=== PATIENT | female | born 1995 | race Caucasian/White ===

== ENCOUNTER 2023-11-26 07:28 | Emergency (ER) | payer BC, SELFPAY ==
[2023-11-26 07:32] VITALS: BP 126/83; PULSE 113; TEMP 37.1; O2SAT 98; BMI 33.7
--- NOTE | 2023-11-26 07:42 | ED.GENADUL1 ---
HPI HPI - General Adult General Chief complaint: Upper Respiratory Infection Stated complaint: SORE THROAT/ GENERAL WEAKNESS Time Seen by Provider: 11/26/23 07:34 Source: patient Mode of arrival: walk-in Limitations: no limitations History of Present Illness HPI narrative: The patient presented to us with 2 days history of sore throat, she mentioned that she also have a generalized body ache no cough , but she have a change in her voice. And the sore throat at the main concern No cough no difficulty breathing and she has been exposed to her daughter who had similar illness Related Data Home Medications ?Medication ?Instructions ?Recorded ?Confirmed citalopram 10 mg tablet 10 mg PO DAILY 11/26/23 11/26/23 fludrocortisone 0.1 mg tablet 0.1 mg PO DAILY 11/26/23 11/26/23 montelukast 10 mg tablet 10 mg PO DAILY 11/26/23 11/26/23 Previous Rx's ?Medication ?Instructions ?Recorded amoxicillin 875 mg-potassium 1 tab PO Q12H #14 tabs 11/26/23 clavulanate 125 mg tablet ibuprofen 600 mg tablet 600 mg PO Q8H PRN pain #20 tabs 11/26/23 Allergies Allergy/AdvReac Type Severity Reaction Status Date / Time No Known Drug Allergies Allergy Verified 11/26/23 07:32 Opioid HPI Opioid Management Most Recent Opioid Data: No Data to Display Review of Systems ROS Status of ROS 10 or more systems reviewed and unremarkable except as noted in history and below Exam Narrative Exam Narrative: Nurses notes and vital signs reviewed and patient is not hypoxic. General: Well-appearing and in no apparent distress. Skin: Warm, dry, no pallor noted. No rash. Head: Normocephalic, atraumatic. Neck: Supple, anterior cervical lymphadenopathy noted on the anterior aspect of both sides Eye: Pupils are equal, round and EOMI. No scleral icterus. Ears, Nose, Mouth, and Throat: Posterior oropharynx shows significant erythema with white exudate on the left side and the patient have mild hypertrophy of the tonsils. No probe compromise of the airway and there is anterior cervical lymphadenopathy in both sides Respiratory: No accessory muscle use or respiratory distress. Lungs are clear to auscultation, no wheezing, rales or rhonchi Chest Wall: no tenderness Back: No midline thoracic or lumbar vertebral tenderness. No CVA tenderness Musculoskeletal: normal ROM, no calf or popliteal tenderness, no lower extremity edema/swelling GI: Abdomen is soft, non-distended. Normal bowel sounds. No masses appreciated. No tenderness to palpation. No rebound, guarding, or rigidity noted. Neurological: A&O x4. No cranial nerve dysfunction observed. No truncal ataxia. Moves all extremities. Sensation intact. Psychiatric: Cooperative and interactive. Normal mood and affect. Constitutional Vital Signs, click to edit/add: Last Vital Signs Temp 98.8 F 11/26/23 07:32 Pulse 113 H 11/26/23 07:32 Resp 20 11/26/23 07:32 BP 126/83 11/26/23 07:32 Pulse Ox 98 11/26/23 07:32 Course Vital Signs Vital signs: Vital Signs Temperature 98.8 F 11/26/23 07:32 Pulse Rate 113 H 11/26/23 07:32 Respiratory Rate 20 11/26/23 07:32 Blood Pressure 126/83 11/26/23 07:32 Pulse Oximetry 98 11/26/23 07:32 Temperature 98.8 F 11/26/23 07:32 Pulse Rate 113 H 11/26/23 07:32 Respiratory Rate 20 11/26/23 07:32 Blood Pressure 126/83 11/26/23 07:32 Pulse Oximetry 98 11/26/23 07:32 Medical Decision Making [facility] Narrative Medical decision making narrative: The patient have a typical presentation of strep tonsillitis and her test came positive She was treated in the ER with with Toradol and Augmentin The patient was discharged home with Augmentin as well as continue supportive care The patient was instructed since her daughter had similar symptoms to be tested by her boiler installer in case needed but in case she continued to have any symptoms she also need to be treated for strep The patient is to follow up with primary care physician in next 2-3 days or to return to the emergency department should any of the signs or symptoms worsen or new symptoms develop. The patient agrees with the following Diagnosis and Treatment plan and the patient will be discharged home. Lab Data Labs: Lab Results 11/26/23 Range/Units 07:46 Streptococcus Screen Positive A Discharge Plan Discharge Stand Alone Forms: Portal Instructions Chief Complaint: Upper Respiratory Infection Clinical Impression: Strep tonsillitis Patient Disposition: Home, Self-Care Time of Disposition Decision: 07:41 Condition: Good Prescriptions / Home Meds: New amoxicillin-pot clavulanate 875-125 mg tablet 1 tab PO Q12H Qty: 14 0RF ibuprofen 600 mg tablet 600 mg PO Q8H PRN (Reason: pain) Qty: 20 0RF No Action fludrocortisone 0.1 mg tablet 0.1 mg PO DAILY citalopram 10 mg tablet 10 mg PO DAILY montelukast 10 mg tablet 10 mg PO DAILY Print Language: Algerian Instructions: Strep Throat (DC) Referrals: Physician,Non-Staff, MD [Primary Care Provider] - 1 week
[2023-11-26 08:04] LABS: Internal Control Within Normal Limits; Strep A Antigen Screen Positive
[2023-11-26 08:20] VITALS: BP 124/84; PULSE 98; O2SAT 98
[2023-11-26] MEDS: KETOROLAC TROMETHAMINE 30 MG/ML VIAL IM (08:29)
[2023-11-26] MEDS: AMOXICILLIN/POTASSIUM CLAV 1 TAB TABLET PO (08:29)
[2023-11-26 08:32] VITALS: BP 124/84; PULSE 98; O2SAT 98
== END 2023-11-26 08:34 | disposition home or self-care (01) ==
PROVIDERS: Emergency Provider Emergency Medicine; Family Provider Internal Medicine
DX: J03.00 Acute streptococcal tonsillitis, unspecified (principal)
CPT/HCPCS: 87880; 96372; 99284; J1885

== ENCOUNTER 2024-05-26 17:40 | Emergency (ER) | payer BC, SELFPAY ==
--- NOTE | 2024-05-26 17:41 | US_ITS ---
The [address] [address] Patient Name: MIAH RICKS MRN: [id number] date: 1995 Sex: F Assigned Patient Location: ER Current Patient Location: ER Accession/Order Number: [id number] Exam Date: 05/26/2024 18:39 Report Date: 05/26/2024 20:27 At the request of: RACHELE RICHARDSON Procedure: US OB transvaginal US OB transvaginal HISTORY: vag bleeding COMPARISONS: None TECHNIQUE: Transvaginal imaging the pelvis was performed. FINDINGS: There is a gestational sac and a yolk sac. However, there is no pole or heartbeat which could be due to early gestational age. RIGHT OVARY: There is normal vascular flow. There is a dominant follicle present in the right ovary measuring 2.3 x 2.0 x 2.1 cm. The right ovary measures 5.3 x 2.8 x 5.0 cm. LEFT OVARY: Not visualized. OTHER:There is no significant free fluid in the pelvis. US/US OB transvaginal IMPRESSION: There is a gestational sac and a yolk sac. However, there is no pole or heartbeat which is likely due to early gestational age. Continued correlation with serial beta hCG levels is recommended. Repeat sonography can be performed in 2 weeks. Electronically authenticated by: NOMI SENA Date: 05/26/2024 20:27
--- NOTE | 2024-05-26 17:42 | ED.GENADUL1 ---
HPI HPI - General Adult General Chief complaint: Vaginal Bleeding Stated complaint: VAGINAL BLEEDING, 6 WEEKS Time Seen by Provider: 05/26/24 17:41 Source: patient and family History of Present Illness HPI narrative: Patient is a 29-year-old female who presents to this emergency department for reevaluation of vaginal bleeding early in . Patient states she has been spotting for approximately 2 weeks with regard to her , she states she is 5-1/2 weeks . She is a A1. She states that her METHODS SPECIALIST has been ordering quantitative hCG levels to track her and they have been trending up as expected, however yesterday she had heavier bleeding and went to the [place] emergency department this morning. She states she had an ultrasound that was unremarkable. She presents to this emergency department for second opinion, she states when she got home from the ER she passed a large blood clot and continue to have some bleeding. She has not saturated a pad. She has had no fevers, significant abdominal pain or vomiting. Related Data Home Medications ?Medication ?Instructions ?Recorded ?Confirmed citalopram 10 mg tablet 10 mg PO DAILY 11/26/23 11/26/23 fludrocortisone 0.1 mg tablet 0.1 mg PO DAILY 11/26/23 11/26/23 montelukast 10 mg tablet 10 mg PO DAILY 11/26/23 11/26/23 Previous Rx's ?Medication ?Instructions ?Recorded amoxicillin 875 mg-potassium 1 tab PO Q12H #14 tabs 11/26/23 clavulanate 125 mg tablet fluconazole 150 mg tablet 150 mg PO ONCE #1 tab 11/26/23 ibuprofen 600 mg tablet 600 mg PO Q8H PRN pain #20 tabs 11/26/23 Allergies Allergy/AdvReac Type Severity Reaction Status Date / Time No Known Drug Allergies Allergy Verified 11/26/23 07:32 Opioid HPI Opioid Management Most Recent Opioid Data: Last Pain Scale 4 05/26/24 20:13 05/26/24 Review of Systems ROS Constitutional Denies: fever or chills Ears, nose, mouth, and throat Denies: throat pain or nasal congestion Gastrointestinal Denies: abdominal pain, nausea, vomiting or diarrhea Neurological Reports: headache; Denies: dizziness Hematologic/Lymphatic Denies: easy bruising or easy bleeding PFSH PFSH Social History Little interest or pleasure in doing things: not at all Feeling down, depressed, or hopeless: not at all Exam Narrative Exam Narrative: Gen.: Awake, alert, in no distress Head: Normocephalic, atraumatic ENT: Moist mucous membranes Respiratory: No respiratory distress Gastrointestinal: Abdomen is soft, nondistended and nontender to palpation Extremities: Moves extremities equally Psych: Normal mood and affect Neuro: No focal neuro deficit Skin: Warm, dry, intact Constitutional Vital Signs, click to edit/add: Last Vital Signs Temp 98.4 F 05/26/24 20:14 Pulse 84 05/26/24 20:14 Resp 18 05/26/24 20:14 BP 127/80 05/26/24 20:14 Pulse Ox 100 05/26/24 20:14 O2 Del Method Room Air 05/26/24 17:51 Course Vital Signs Vital signs: Vital Signs Temperature 98.2 F 05/26/24 17:51 Pulse Rate 87 05/26/24 17:51 Respiratory Rate 18 05/26/24 17:51 Blood Pressure 133/89 05/26/24 17:51 Pulse Oximetry 100 05/26/24 17:51 Oxygen Delivery Method Room Air 05/26/24 17:51 Temperature 98.4 F 05/26/24 20:14 Pulse Rate 84 05/26/24 20:14 Respiratory Rate 18 05/26/24 20:14 Blood Pressure 127/80 05/26/24 20:14 Pulse Oximetry 100 05/26/24 20:14 Oxygen Delivery Method Room Air 05/26/24 17:51 Medical Decision Making MDM Narrative Medical decision making narrative: Ultrasound shows a pole and questionable gestational sac, no other evidence of acute process. Patient with A+ blood type, quantitative hCG level is 10,000. Patient was given education and reassurance. She is hemodynamically stable. Follow-up as scheduled by METHODS SPECIALIST for repeat quantitative hCG levels for surveillance. Return to the ER if symptoms change or worsen SHARED APC VISIT, PHYSICIAN ATTESTATION: [id number] I performed a substantive part of the MDM during the patient?s E/M visit. I personally evaluated and examined the patient. I personally made or approved the documented management plan and acknowledge its risk of complications. Medical Records Medical records reviewed: Yes I reviewed the patient's medical records Lab Data Lab results reviewed: Yes I reviewed the patient's lab results Labs: Lab Results 05/26/24 05/26/24 Range/Units 18:20 18:25 HCG, Quant 84830 mIU/mL Urine Color Lt. yellow (YELLOW) Urine Clarity Clear (CLEAR) Urine pH 6.0 (5.0-9.0) Ur Specific [place] 1.025 (1.005-1.025) Urine Protein Negative (NEG/TRACE) mg/dL Urine Glucose (UA) Negative (NEGATIVE) mg/dL Urine Ketones Negative (NEGATIVE) mg/dL Urine Occult Blood Large A (NEGATIVE) Urine Nitrite Negative (NEGATIVE) Urine Bilirubin Negative (NEGATIVE) Urine Urobilinogen 0.2 (0.2-1.0) EU/dL Ur Leukocyte Esterase Negative (NEGATIVE) Urine RBC 10-20 A (0-2) #/HPF Urine WBC None seen (NONE SEEN) #/HPF Ur Squamous Epith Cells Rare (NONE/RARE) #/LPF Urine Crystals None seen (None Seen) #/HPF Urine Bacteria None seen (NONE SEEN) #/HPF Urine Casts None seen (NONE SEEN) #/LPF Urine Mucus None seen (NONE SEEN) Ur Culture Indicated? No Blood Type A Positive Imaging Data US - abdomen: Attestation: I have reviewed the pertinent imaging results. Radiologist's impression: ITS Impressions Transvaginal US 05/26/24 17:41 IMPRESSION: There is a gestational sac and a yolk sac. However, there is no pole or heartbeat which is likely due to early gestational age. Continued correlation with serial beta hCG levels is recommended. Repeat sonography can be performed in 2 weeks. Electronically authenticated by: NOMI SENA Date: 05/26/2024 20:27 Discharge Plan Discharge Chief Complaint: Vaginal Bleeding Clinical Impression: Vaginal bleeding affecting early Patient Disposition: Home, Self-Care Time of Disposition Decision: 20:34 Condition: Good Prescriptions / Home Meds: No Action fludrocortisone 0.1 mg tablet 0.1 mg PO DAILY citalopram 10 mg tablet 10 mg PO DAILY montelukast 10 mg tablet 10 mg PO DAILY amoxicillin-pot clavulanate 875-125 mg tablet 1 tab PO Q12H Qty: 14 0RF ibuprofen 600 mg tablet 600 mg PO Q8H PRN (Reason: pain) Qty: 20 0RF fluconazole 150 mg tablet 150 mg PO ONCE Qty: 1 0RF Rx Instructions: please take after your antibiotic course is over Print Language: Thai Instructions: Threatened Miscarriage (ED) Referrals: Physician,Non-Staff, [Primary Care Provider] - 1 week
[2024-05-26 17:51] VITALS: BP 133/89; PULSE 87; TEMP 36.8; O2SAT 100; BMI 33.8
[2024-05-26 18:44] LABS: Bilirubin Urine NEGATIVE (NEGATIVE); Blood Urine LARGE (NEGATIVE); Clarity Urine CLEAR (CLEAR); Color Urine LT. YELLOW (YELLOW); Glucose Urine UA NEGATIVE (NEGATIVE); Ketones Urine NEGATIVE (NEGATIVE); Leukocyte Esterase Urine NEGATIVE (NEGATIVE); Nitrite Urine NEGATIVE (NEGATIVE); Protein Urine NEGATIVE (NEG/TRACE); Specific Gravity Urine 1.025 (1.005-1.025); Urobilinogen Urine 0.2 EU/dL (0.2-1.0)
[2024-05-26 18:54] LABS: Bacteria Urine NONE SEEN #/HPF (NONE SEEN); WBC Urine NONE SEEN #/HPF (NONE SEEN)
[2024-05-26 18:55] LABS: Cast Seen? NONE SEEN #/LPF (NONE SEEN); Crystals Seen? None Seen #/HPF (None Seen); Mucus Urine NONE SEEN (NONE SEEN); Squamous Epithelial Cell Urine RARE #/LPF (NONE/RARE); Urine Culture Indicated NO
[2024-05-26 19:18] LABS: HCG Quantitative 10019 mIU/mL
[2024-05-26] MEDS: ACETAMINOPHEN 325 MG TABLET 650 MG PO (20:13)
[2024-05-26 20:14] VITALS: BP 127/80; PULSE 84; TEMP 36.9; O2SAT 100
--- NOTE | 2024-05-26 20:43 | PC.NURSE ---
i gave this patient verbal and written discharge order to this patient and she voices understanding these. at time of discharge this patient voices no concerns and shows no signs of distress
== END 2024-05-26 20:44 | disposition home or self-care (01) ==
PROVIDERS: Physician Assistant; Emergency Provider Emergency Medicine; Family Provider Internal Medicine; PCP Student in an Organized Health Care Education/Training Program
DX: O20.9 Hemorrhage in early pregnancy, unspecified (principal); Z3A.01 Less than 8 weeks gestation of pregnancy
CPT/HCPCS: 36415; 76817; 81001; 84702; 86900; 86901; 99285